=== PATIENT | male | born 1975 | race Caucasian/White ===

== ENCOUNTER 2022-06-06 16:18 | Emergency (ER) | payer SELFPAY ==
[~2022-06-06] VITALS: Ht 180.3 cm; Wt 64.0 kg
[2022-06-06] MEDS ORDERED: DIPHENHYDRAMINE 50MG/ML VIAL IM STA (17:45)
[2022-06-06] MEDS ORDERED: LORAZEPAM 2MG/ML CPJ IM STA (17:45)
[2022-06-06] MEDS ORDERED: SODIUM CHLORIDE 0.9% 1,000 ML IV ONE (17:45)
[2022-06-06] MEDS ORDERED: OLANZAPINE 10 MG/VIAL IM STA (17:45)
[2022-06-06] MEDS ORDERED: LORAZEPAM 2MG/ML CPJ IM NR (18:15)
[2022-06-06] MEDS ORDERED: DIPHENHYDRAMINE 50MG/ML VIAL IM NR (18:15)
[2022-06-06 18:28] LABS: BASOPHILS % 0.4 % (0.0-2.0); EOSINOPHILS % 0.8 % (0.0-5.0); HEMATOCRIT. 41.7 % (42.0-52.0); HEMOGLOBIN. 14.2 g/dL (14.0-18.0); MEAN CORPUSCULAR HEMOGLOBIN 32.6 pg (28.0-32.0); MEAN CORPUSCULAR VOLUME 95.4 fL (80.0-94.0); MONOCYTES % 9.9 % (2.0-8.0); NEUTROPHILS % 74.9 % (40.0-76.0); PLATELET 333 x1000/uL (130-400); RED BLOOD CELL COUNT 4.38 mill/uL (4.7-6.1); RED CELL DISTRIBUTION WIDTH 13.4 % (11.6-14.6)
[2022-06-06] MEDS ORDERED: OLANZAPINE 10 MG/VIAL IM NR (18:30)
[2022-06-06 18:31] LABS: CHLORIDE 104 mEq/L (98-107)
[2022-06-06 18:39] LABS: ETHANOL BLOOD < 10 mg/dL
[2022-06-06] MEDS ORDERED: LORAZEPAM 2MG/ML CPJ IM ONE (20:15)
[2022-06-06] MEDS ORDERED: DIPHENHYDRAMINE 50MG/ML VIAL IM ONE (20:15)
[2022-06-06 22:13] LABS: CLARITY URINE CLEAR (CLEAR); COLOR URINE DARK YELLOW (YELLOW); KETONES URINE 3+ (NEGATIVE); LEUKOCYTE ESTERASE URINE NEGATIVE (NEGATIVE); NITRITE URINE NEGATIVE (NEGATIVE); OCCULT BLOOD URINE NEGATIVE (NEGATIVE); PH URINE 5.5 (4.5-8.0); PROTEIN URINE TRACE (NEGATIVE); SPECIFIC GRAVITY URINE 1.024 (1.005-1.030)
[2022-06-06 22:25] LABS: *AMPHETAMINES SCREEN URINE PRESUMTIVE POSITIVE (NEGATIVE); *BARBITURATES SCREEN URINE NEGATIVE (NEGATIVE); *BENZODIAZEPINES SCREEN URINE NEGATIVE (NEGATIVE); *COCAINE SCREEN URINE NEGATIVE (NEGATIVE); CANNABINOID URINE SCREEN NEGATIVE (NEGATIVE); METHADONE URINE SCREEN NEGATIVE (NEGATIVE); OPIATES URINE SCREEN NEGATIVE (NEGATIVE); PHENCYCLIDINE URINE SCREEN NEGATIVE (NEGATIVE)
[2022-06-07 02:56] VITALS: BP 130/80
== END 2022-06-07 02:59 | disposition home or self-care (01) ==
LOC: ER 16:18
DX: R41.82 Altered mental status, unspecified (principal); R45.1 Restlessness and agitation; F15.129 Other stimulant abuse with intoxication, unspecified
CPT/HCPCS: 36415; 70450; 71045; 80053; 80305; 80307; 80320; 80329; 81003; 84484; 85025; 93005; 96360; 96372; 99285; J1200; J2060; J3490; J7030; Z7610; G0480